=== PATIENT | male | born 1995 | race Hispanic/Latino ===

== ENCOUNTER 2021-06-22 05:47 | Emergency (ER) | payer SELFPAY ==
[~2021-06-22] VITALS: Ht 175.3 cm; Wt 77.0 kg
[2021-06-22] MEDS ORDERED: AMOXICILLIN500 MG PO (07:00)
[2021-06-22 07:04] VITALS: BP 119/75
[2021-06-23] MEDS ORDERED: AMOX/K CLAV875 M1 PO (09:38)
== END 2021-06-22 07:10 | disposition home or self-care (01) | DRG 159 ==
LOC: ED 05:47
PROC: 0HQ1XZZ Repair Face Skin, External Approach (ICD-10-PCS; principal; 2021-06-22)
DX: S01.511A Laceration without foreign body of lip, initial encounter (principal); W10.9XXA Fall (on) (from) unspecified stairs and steps, initial encounter

== ENCOUNTER 2021-06-23 09:04 | Emergency (ER) | payer SELFPAY ==
[~2021-06-23] VITALS: Ht 175.3 cm; Wt 60.0 kg
[~2021-06-23 09:04] MED LIST: AMOXICILLIN500 MG PO
[2021-06-23 09:21] VITALS: BP 124/63
[2021-06-23 09:30] VITALS: BP 126/70
[2021-06-23] MEDS ORDERED: AMOX/K CLAV875 M1 PO (09:38)
[2021-06-23 10:00] VITALS: BP 122/73
[2021-06-23 10:23] VITALS: BP 122/73
== END 2021-06-23 10:28 | disposition home or self-care (01) | DRG 950 ==
LOC: ED 09:04
DX: S01.511D Laceration without foreign body of lip, subsequent encounter (principal); X58.XXXD Exposure to other specified factors, subsequent encounter

== ENCOUNTER 2021-06-30 08:17 | Emergency (ER) | payer SELFPAY ==
[~2021-06-30] VITALS: Ht 175.3 cm; Wt 79.5 kg
[~2021-06-30 08:17] MED LIST changes: +AMOX/K CLAV875 M1 PO
[2021-06-30 08:26] VITALS: BP 127/71
[2021-06-30 08:30] VITALS: BP 120/67
[2021-06-30 08:42] VITALS: BP 120/67
== END 2021-06-30 08:47 | disposition home or self-care (01) | DRG 950 ==
LOC: ED 08:17
DX: S01.511D Laceration without foreign body of lip, subsequent encounter (principal); X58.XXXD Exposure to other specified factors, subsequent encounter